=== PATIENT | female | born 1985 | race Hispanic/Latino ===

== ENCOUNTER 2022-07-25 12:46 | Emergency (ER) | payer BC ==
[~2022-07-25] VITALS: Ht 170.2 cm; Wt 65.3 kg
[2022-07-25] MEDS ORDERED: PANTOPRAZOLE 40 MG/VIAL IVP STA (13:45)
[2022-07-25] MEDS ORDERED: LACTATED RINGERS 1000ML 1,000 ML IV ONE (14:00)
[2022-07-25 14:03] LABS: BASOPHILS % (AUTO) 0.5 % (0.0-5.0); EOSINOPHILS % (AUTO) 1.8 % (0.0-8.0); HEMATOCRIT 41.5 % (36-48); LYMPHOCYTES % (AUTO) 29.1 % (21.0-51.0); MEAN CORPUSCULAR HEMOGLOBIN 26.8 pg (27.0-33.0); MEAN CORPUSCULAR HGB CONC 32.8 g/dL (32.0-36.0); MEAN CORPUSCULAR VOLUME 81.9 fL (79-99); MONOCYTES % (AUTO) 8.1 % (3.0-13.0); NEUTROPHILS % (AUTO) 60.3 % (40.0-77.0); PLATELET COUNT (AUTO) 305 K/uL (130-400); RED BLOOD CELL COUNT(AUTO) 5.07 MIL/uL (4.00-5.50); RED CELL DISTRIBUTION WIDTH 14.5 % (11.0-15.5); WHITE BLOOD COUNT (AUTO) 6.6 K/uL (4.8-10.8)
[2022-07-25 14:15] LABS: POTASSIUM 3.6 mmol/L (3.5-5.1)
[2022-07-25 14:17] LABS: ALBUMIN 4.4 g/dL (3.5-5.0); TOTAL PROTEIN, SERUM 7.9 g/dL (6.0-8.3)
[2022-07-25] MEDS ORDERED: ONDANSETRON 4MG INJ ONE (14:25)
[2022-07-25] MEDS ORDERED: MORPHINE 2 MG SYG ONE (14:25)
[2022-07-25] MEDS ORDERED: MORPHINE 2 MG SYG IVP ONE (14:30)
[2022-07-25] MEDS ORDERED: ONDANSETRON 4MG INJ IVP ONE (14:30)
[2022-07-25 15:18] LABS: APPEARANCE,URINE CLEAR (CLEAR); BILIRUBIN,URINE NEGATIVE (NEGATIVE); COLOR,URINE LIGHT-YELLOW (YELLOW); GLUCOSE, URINE (UA) NEGATIVE (NEGATIVE); KETONES,URINE 40 mg/dL (NEGATIVE); LEUKOCYTE ESTERASE ,URINE NEGATIVE Leu/uL (NEGATIVE); NITRATE,URINE NEGATIVE (NEGATIVE); OCCULT BLOOD,URINE NEGATIVE (NEGATIVE); PROTEIN,URINE NEGATIVE (NEGATIVE); UROBILINOGEN,URINE 0.2 mg/dL (0.2-1.0)
[2022-07-25 15:32] LABS: HCG,QUALITATIVE URINE NEGATIVE (NEGATIVE)
[2022-07-25 15:34] LABS: OTHER CASTS, URINE 1 /LPF (None Seen); SQUAMOUS EPITHELIAL CELL,UR RARE /HPF (0-2); WBC,URINE 0-1 /HPF (0-1)
[2022-07-25] MEDS ORDERED: PANT40TA55 PO (17:48)
[2022-07-25 18:40] VITALS: BP 124/75
== END 2022-07-25 18:46 | disposition home or self-care (01) ==
LOC: EDH 12:46
DX: K59.00 Constipation, unspecified (principal); K29.70 Gastritis, unspecified, without bleeding
CPT/HCPCS: 99284; 74176; 96374; 96375; 96361; 80053; 83690; 85025; 81001; 81025; 36415; J7120; J2405; C9113